=== PATIENT | female | born 1970 | race African-American/Black ===

== ENCOUNTER 2024-04-21 10:01 | Emergency (ER) | payer MEDICAID, OTHER ==
[~2024-04-21] VITALS: Ht 167.6 cm; Wt 74.1 kg
[2024-04-21 10:38] VITALS: BP 149/91; PULSE 74; RESP 18; TEMP 98.1; O2SAT 98
[2024-04-21] MEDS: KETOROLAC TROMETH 30 MG/ML 1ML VIAL IM ONE (11:24)
[2024-04-21] MEDS ORDERED: CYCL-837 PO (12:21)
[2024-04-21] MEDS ORDERED: IBUP1TAB5 PO (12:21)
[2024-04-22] MEDS ORDERED: NAPR-957 PO (07:44)
== END 2024-04-21 12:36 | disposition home or self-care (01) ==
LOC: ER 10:01
DX: S13.4XXA Sprain of ligaments of cervical spine, initial encounter (principal); M25.512 Pain in left shoulder; M25.511 Pain in right shoulder; M25.531 Pain in right wrist; M25.562 Pain in left knee; M25.561 Pain in right knee; V43.62XA Car passenger injured in collision with other type car in traffic accident, initial encounter; Y93.89 Activity, other specified; Y92.89 Other specified places as the place of occurrence of the external cause; Y99.8 Other external cause status
CPT/HCPCS: 72125; 73030; 96372; 99285; J1885

== ENCOUNTER 2024-04-22 05:11 | Emergency (ER) | payer MEDICAID, OTHER ==
[~2024-04-22] VITALS: Ht 167.6 cm; Wt 63.0 kg
[~2024-04-22 05:11] MED LIST: CYCL-837 PO; IBUP1TAB5 PO
[2024-04-22 07:30] VITALS: BP 181/88; PULSE 72; RESP 20; TEMP 99.8; O2SAT 97
[2024-04-22] MEDS ORDERED: NAPR-957 PO (07:44)
== END 2024-04-22 07:45 | disposition home or self-care (01) ==
LOC: ER 05:11
DX: M79.18 Myalgia, other site (principal); V89.2XXA Person injured in unspecified motor-vehicle accident, traffic, initial encounter; Y93.89 Activity, other specified; Y92.89 Other specified places as the place of occurrence of the external cause; Y99.8 Other external cause status

== ENCOUNTER 2024-06-02 14:00 | Emergency (ER) | payer MEDICAID, OTHER ==
[~2024-06-02] VITALS: Ht 165.1 cm; Wt 73.2 kg
[~2024-06-02 14:00] MED LIST changes: +NAPR-957 PO
[2024-06-02] MEDS: HYDROcodone-ACET 5/325MG TAB PO ONE (15:52)
[2024-06-02 16:18] VITALS: BP 127/87; PULSE 69; RESP 18; TEMP 98.1; O2SAT 99
== END 2024-06-02 16:43 | disposition home or self-care (01) ==
LOC: ER 14:00
DX: M79.18 Myalgia, other site (principal); M25.512 Pain in left shoulder; M25.562 Pain in left knee; M25.522 Pain in left elbow; W18.09XA Striking against other object with subsequent fall, initial encounter; Y93.89 Activity, other specified; Y92.89 Other specified places as the place of occurrence of the external cause; Y99.8 Other external cause status
CPT/HCPCS: 72170; 73562

== ENCOUNTER 2024-06-05 08:31 | Emergency (ER) | payer OTHER ==
[~2024-06-05] VITALS: Ht 167.6 cm; Wt 75.8 kg
[2024-06-05 10:05] VITALS: BP 127/86; PULSE 72; RESP 16; TEMP 98.4; O2SAT 100
[2024-06-05] MEDS ORDERED: LIDO5DIS21 TOP (10:25)
== END 2024-06-05 10:36 | disposition home or self-care (01) ==
LOC: ER 08:31
DX: M25.552 Pain in left hip (principal); M79.18 Myalgia, other site; W01.0XXA Fall on same level from slipping, tripping and stumbling without subsequent striking against object, initial encounter; Y93.89 Activity, other specified; Y92.89 Other specified places as the place of occurrence of the external cause; Y99.8 Other external cause status

== ENCOUNTER 2024-12-11 22:23 | Emergency (ER) | payer MEDICAID, OTHER ==
[~2024-12-11] VITALS: Ht 167.6 cm; Wt 78.8 kg
[~2024-12-11 22:23] MED LIST changes: +LIDO5DIS21 TOP
[2024-12-11 22:42] VITALS: BP 136/85; PULSE 93; RESP 16
[2024-12-11 22:58] VITALS: O2SAT 98
[2024-12-11] MEDS ORDERED: CYCL-837 PO (23:00)
[2024-12-11] MEDS ORDERED: IBUP-1456 PO (23:00)
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
[2024-12-11] MEDS: ONDANSETRON ODT 4 MG TAB PO ONE (23:04)
[2024-12-11] MEDS: HYDROcodone-ACET 5/325MG TAB PO ONE (23:04)
== END 2024-12-11 23:16 | disposition home or self-care (01) ==
LOC: ER 22:23
DX: S39.012A Strain of muscle, fascia and tendon of lower back, initial encounter (principal); S29.012A Strain of muscle and tendon of back wall of thorax, initial encounter; S16.1XXA Strain of muscle, fascia and tendon at neck level, initial encounter; Z79.899 Other long term (current) drug therapy; V89.2XXA Person injured in unspecified motor-vehicle accident, traffic, initial encounter; Y93.89 Activity, other specified; Y92.89 Other specified places as the place of occurrence of the external cause; Y99.8 Other external cause status
CPT/HCPCS: 99283; Q0162